=== PATIENT | male | born 1940 | race Caucasian/White ===

== ENCOUNTER → 2016-12-29 | Day surgery (SDC) | payer MEDICARE, BC ==
[~2016-12-29] MED LIST: Lactated Ringers 1,000 ML IV SCH; Propofol 200 MG/20 ML SDV IV ONE
[2016-12-29 09:27] VITALS: BP 112/54
--- NOTE | 2016-12-29 09:33 | OR ---
DATE OF OPERATION: 12/29/2016 PREOPERATIVE DIAGNOSIS: SCREENING COLONOSCOPY. POSTOPERATIVE DIAGNOSIS: SCREENING COLONOSCOPY. SURGEON: Kain Rodrigues MD PROCEDURE: FULL-LENGTH COLONOSCOPY. ANESTHESIA: [employer]. COMPLICATIONS: None. SPECIMEN: None. FINDINGS: 1. Full-length colonoscopy. 2. Moderate to severe sigmoid diverticulosis. RECOMMENDATIONS: Follow up colonoscopy on an as needed basis at this point. INDICATIONS: The patient was due for routine screening colonoscopy as it had been 10 years. DESCRIPTION OF PROCEDURE: The patient was prepped and draped, placed in the left lateral decubitus position. A lubricated Olympus colonoscope was inserted and easily advanced to the cecum. Direct visualization of the ileocecal valve was accomplished. The bowel prep was poor. There was a lot of stool throughout the colon and in the cecum, it was hard to visualize appendiceal orifice just due to the volume of stool there. Upon withdrawal throughout the entire length of the colon, I found no signs of any polyps, masses, ulcerations or bleeding sites. No vascular abnormalities or signs of colitis. The patient has prominent diverticulosis throughout the sigmoid area and in the rectosigmoid junction, moderate to severe. No inflammatory changes were seen. The rectal vault was benign. Retroflexion scope in the rectum showed no perianal lesions. Air was then suctioned. Scope was removed without complication. AUBREY/ALLEGRA /[id number]
== END ==
LOC: CC.SDS 07:45
PROVIDERS: ATTEND Family Medicine
DX: Z12.11 Encounter for screening for malignant neoplasm of colon (principal); K57.30 Diverticulosis of large intestine without perforation or abscess without bleeding; Z88.0 Allergy status to penicillin; Z88.8 Allergy status to other drugs, medicaments and biological substances; Z79.899 Other long term (current) drug therapy; Z98.890 Other specified postprocedural states; Z96.649 Presence of unspecified artificial hip joint; Z72.0 Tobacco use
CPT/HCPCS: G0121; J2704; J7120; 00810